=== PATIENT | female | born 1955 | race Caucasian/White ===

== ENCOUNTER 2020-05-18 20:38 | Inpatient (IN) | payer BC ==
[2020-05-18] MEDS ORDERED: NITROGLYCERIN 0.4 MG/TAB SL ONE (22:07)
[2020-05-18] MEDS ORDERED: NA CHLORIDE 0.9% 500 ML ONE (22:07)
[2020-05-18] MEDS ORDERED: ASPIRIN 81 MG CHEWABLE TABLET ONE (22:08)
[2020-05-18 22:24] LABS: Protime INR 1.03
[2020-05-18 22:25] LABS: Absolute Lymphocytes (CBC) 2.5 K/uL (0.7-4.9); Basophils % 0.9 % (0-1.3); Hematocrit 37.6 % (36.0-45.0); Lymphocytes % 23.7 % (15.3-44.8); MPV 7.1 fL (7.6-11.3); RBC Red Blood Cell Count 4.45 M/uL (3.86-4.86)
[2020-05-18 22:54] LABS: ALT/SGPT 26 U/L (12-78); AST/SGOT 14 U/L (15-37); Albumin 3.3 g/dL (3.4-5.0); Alkaline Phosphatase 81 U/L (45-117); BUN Blood Urea Nitrogen 16 mg/dL (7-18); Bicarbonate 26 mmol/L (21-32); Bilirubin Direct < 0.1 mg/dL (0-0.2); Bilirubin Total 0.2 mg/dL (0.2-1.0); Glucose Level 113 mg/dL (74-106); Magnesium 2.5 mg/dL (1.8-2.4); NT PRO-BNP 408 pg/mL (<125); Potassium 3.9 mmol/L (3.5-5.1); Protein, Total 7.5 g/dL (6.4-8.2); Sodium Level 142 mmol/L (136-145)
[2020-05-18 22:55] LABS: Troponin (Emerg Dept Use Only) 0.68 ng/mL (0.0-0.045)
[2020-05-18] MEDS ORDERED: MORPHINE 2 MG/ML SYR ONE (22:56)
[2020-05-18] MEDS ORDERED: ENOXAPARIN 80 MG/0.8 ML SQ ONE (23:18)
[2020-05-18] MEDS ORDERED: ENOXAPARIN 40 MG/0.4 ML SQ ONE (23:18)
--- NOTE | 2020-05-18 23:19 | EDPHYS ---
Physician Documentation [facility] Name: Sade Ochoa Age: 64 yrs Sex: Female : 1955 Arrival Date: 05/18/2020 Time: 20:43 Bed 15 Private MD: ED Physician Abdiel Ryan HPI: 05/18 21:20 This 64 yrs old Female presents to ER via Ambulatory with complaints of Blood Pressure cp Problem, Headache. 21:20 The patient complains of pain to the middle of head. cp 21:20 Onset: The symptoms/episode began/occurred yesterday. The patient or guardian reports cp chest pain that is located primarily in the substernal area. Onset: 1 hour(s) ago. The pain does not radiate. Associated signs and symptoms: Pertinent negatives: altered mental status, dizziness, fever, neck stiffness, vision changes, vomiting, weakness. The chest pain is described as aching. Duration: The patient or guardian reports a single episode, that is still ongoing, but improving. Historical: - Allergies: 20:56 No Known Allergies; lp1 - Home Meds: 20:56 metoprolol succinate 50 mg oral Tb24 1 tab once daily [Active]; atorvastatin 10 mg oral lp1 tab 1 tab once daily [Active]; Plavix 75 mg Oral tab 1 tab once daily [Active]; - PMHx: 20:56 Hypertension; lp1 - PSHx: 20:56 Heart stents; lp1 - Immunization history:: Adult Immunizations up to date. - Social history:: Smoking status: Reported history of juuling and/or vaping. ROS: 21:25 Constitutional: Negative for body aches, chills, fever, poor PO intake. cp 21:25 Neck: Negative for pain with movement, pain at rest, stiffness. cp 21:25 Cardiovascular: Positive for chest pain, Negative for edema, palpitations. 21:25 Respiratory: Negative for cough, shortness of breath, wheezing. 21:25 Abdomen/GI: Negative for abdominal pain, nausea, vomiting, diarrhea, constipation. 21:25 Back: Negative for radiated pain. 21:25 Neuro: Positive for headache, Negative for altered mental status, loss of consciousness, syncope, weakness. 21:25 All other systems are negative. Exam: 21:30 Constitutional: The patient appears in no acute distress, alert, awake, cp non-diaphoretic, non-toxic, well developed, well nourished. 21:30 Head/Face: Normocephalic, atraumatic. cp 21:30 Eyes: Periorbital structures: appear normal, Conjunctiva: normal, no exudate, no injection, Sclera: no appreciated abnormality, Lids and lashes: appear normal, bilaterally. 21:30 ENT: External ear(s): are unremarkable, Nose: is normal, Posterior pharynx: Airway: no evidence of obstruction, patent. 21:30 Neck: ROM/movement: is normal, is supple, without pain, no range of motions limitations. 21:30 Chest/axilla: Inspection: normal, Palpation: is normal, no crepitus, no tenderness. 21:30 Cardiovascular: Rate: normal, Rhythm: regular, Pulses: Pulses are 2+ in right radial artery and left radial artery. Heart sounds: murmur, not appreciated, Edema: is not appreciated, JVD: is not appreciated. 21:30 Respiratory: the patient does not display signs of respiratory distress, Respirations: normal, Breath sounds: are clear throughout, no decreased breath sounds, no stridor, no wheezing. 21:30 Abdomen/GI: Inspection: abdomen appears normal, Bowel sounds: active, all quadrants, cp Palpation: abdomen is soft and non-tender, in all quadrants. 21:30 Back: pain, is absent, ROM is normal. cp 21:30 Neuro: Orientation: to person, place \T\ time. Mentation: is normal, Cerebellar function: is grossly normal, Motor: moves all fours, strength is normal, Sensation: is normal. 21:33 ECG was reviewed by the Attending Physician. cp Vital Signs: 20:56 BP 148 / 96 RA; Pulse 87; Resp 18; Temp 97.9(TE); Pulse Ox 97% on R/A; Weight 117.93 lp1 kg; Height 5 ft. 7 in. (170.18 cm); Pain 0/10; 21:01 BP 145 / 101 LA; lp1 22:00 BP 115 / 94; Pulse 88; Resp 22; Pulse Ox 94% on R/A; vc 23:55 BP 146 / 88; Pulse 73; Resp 16; Pulse Ox 100% on R/A; vc 20:56 Body Mass Index 40.72 (117.93 kg, 170.18 cm) lp1 MDM: 21:21 Patient medically screened. cp 22:10 Differential diagnosis: abnormal EKG, acute myocardial infarction, hypertensive cp headache, migraine, sinusitis, subarachnoid bleed, tension headache. 23:15 The patient was given aspirin in the Emergency Department. cp 23:15 Data reviewed: vital signs, nurses notes, lab test result(s), EKG, radiologic studies, cp plain films, I have discussed the patient's presentation/case with the attending Emergency Department Physician;. Test interpretation: by ED physician or midlevel provider: ECG, chest xray negative for infiltrates. Response to treatment: the patient's symptoms have markedly improved after treatment, chest pain markedly improved. 23:17 Physician consultation: Ld Alvarado MD was contacted at 23:17, regarding consult, cp patient's condition, and will see patient in inpatient room, tomorrow morning. 05/18 21:21 Order name: Basic Metabolic Panel; Complete Time: 22:56 cp 05/18 22:56 Interpretation: Normal except: GLUC 113; GFR 63. cp 05/18 21:21 Order name: CBC with Diff; Complete Time: 22:43 cp 05/18 23:12 Interpretation: Normal except: MPV 7.1. cp 05/18 21:21 Order name: LFT's; Complete Time: 22:56 cp 05/18 23:12 Interpretation: Normal except: AST 14; ALB 3.3; GLOB 4.2; A/G 0.8. cp 05/18 21:21 Order name: Magnesium; Complete Time: 22:56 cp 05/18 21:21 Order name: NT PRO-BNP; Complete Time: 22:56 cp 05/18 21:21 Order name: PT-INR; Complete Time: 22:43 cp 05/18 21:21 Order name: Troponin (emerg Dept Use Only); Complete Time: 22:56 cp 05/18 22:56 Interpretation: Abnormal: TROPED 0.68. cp 05/18 21:21 Order name: XRAY Chest (1 view) cp 05/18 21:39 Order name: CT Head Brain wo Cont cp 05/18 22:23 Order name: Chest Single View EDWA 05/18 22:26 Order name: Head Brain Wo Cont EDMS 05/18 21:21 Order name: EKG; Complete Time: 22:02 cp 05/18 21:21 Order name: Cardiac monitoring; Complete Time: 21:42 cp 05/18 21:21 Order name: EKG - Nurse/Tech; Complete Time: 21:42 cp 05/18 21:21 Order name: IV Saline Lock; Complete Time: 22:13 cp 05/18 21:21 Order name: Labs collected and sent; Complete Time: 22:13 cp 05/18 21:21 Order name: O2 Per Protocol; Complete Time: 22:13 cp 05/18 21:21 Order name: O2 Sat Monitoring; Complete Time: 22:14 cp EC:33 Rate is 78 beats/min. Rhythm is regular. DC interval is normal. QRS interval is normal. cp QT interval is normal. T waves are Inverted in lead aVL. Interpreted by me. Reviewed by me. Administered Medications: 22:01 Drug: Nitroglycerin 0.4 mg Route: Sublingual; vc 22:02 Drug: Aspirin Chewable Tablet 324 mg Route: PO; vc 22:26 Drug: NS 0.9% 500 ml Route: IV; Rate: bolus; Site: left antecubital; vc 22:52 Drug: morphine 2 mg Route: IVP; Site: left antecubital; vc 23:12 Drug: Lovenox 1 mg/kg {Note: ADMINISTERED 120 MG.} Route: Sub-Q; Site: right lower vc abdomen; Disposition: 23:30 Chart complete. 05/19 06:07 Co-signature as Attending Physician, Abdiel Ryan MD I agree with the assessment and tw4 plan of care. Disposition: 05/18/20 23:19 Hospitalization ordered by Ulises Malhotra for Inpatient Admission. Preliminary diagnosis are Non-ST elevation (NSTEMI) myocardial infarction, Hypertensive heart disease. - Bed requested for Telemetry/MedSurg (Inpatient). - Status is Inpatient Admission. vc - Condition is Stable. - Problem is new. - Symptoms have improved. Signatures: Dispatcher [employer] EDMS Chelsey Myrick, RN RN lp1 Rafael Nava PA PA cp Garcia, Cindy, RN RN cg Wadley, Terrence, MD MD tw4 Lucila Green RN RN vc Corrections: (The following items were deleted from the chart) 05/18 23:19 23:19 Hospitalization Ordered by Ulises Malhotra DO for Inpatient Admission. Preliminary cp diagnosis is Non-ST elevation (NSTEMI) myocardial infarction. Bed requested for Telemetry/MedSurg (Inpatient). Status is Inpatient Admission. Condition is Stable. Problem is new. Symptoms have improved. cp 23:52 23:19 05/18/2020 23:19 Hospitalization Ordered by Ulises Malhotra DO for Inpatient cg Admission. Preliminary diagnosis is Non-ST elevation (NSTEMI) myocardial infarction; Hypertensive heart disease. Bed requested for Telemetry/MedSurg (Inpatient). Status is Inpatient Admission. Condition is Stable. Problem is new. Symptoms have improved. cp 23:54 21:30 Cardiovascular: Rate: normal, Rhythm: regular, Heart sounds: murmur, not cp appreciated, Edema: is not appreciated, JVD: is not appreciated, cp 05/19 00:46 09 23:52 05/18/2020 23:19 Hospitalization Ordered by Ulises Malhotra DO for Inpatient vc Admission. Preliminary diagnosis is Non-ST elevation (NSTEMI) myocardial infarction; Hypertensive heart disease. Bed requested for Telemetry/MedSurg (Inpatient). Status is Inpatient Admission. Condition is Stable. Problem is new. Symptoms have improved. cg
--- NOTE | 2020-05-18 23:19 | ER ---
Nurse's Notes [facility] Name: Sade Ochoa Age: 64 yrs Sex: Female : 1955 Arrival Date: 05/18/2020 Time: 20:43 Bed 15 Private MD: Diagnosis: Non-ST elevation (NSTEMI) myocardial infarction;Hypertensive heart disease Presentation: 05/18 20:53 Chief complaint: Patient states: Headache began yesterday, checked blood pressure and lp1 was high at home 197/101; Began to have some chest pain tonight. Ebola Screen: No symptoms or risks identified at this time. Risk Assessment: Do you want to hurt yourself or someone else? Patient reports no desire to harm self or others. Onset of symptoms was May 17, 2020. 20:53 Method Of Arrival: Ambulatory lp1 20:53 Acuity: CALLIE 3 lp1 20:56 Coronavirus screen: Client denies travel out of the [place] in the last 14 days. At this lp1 time, the client does not indicate any symptoms associated with coronavirus-19. Initial Sepsis Screen: Does the patient meet any 2 criteria? No. Patient's initial sepsis screen is negative. Does the patient have a suspected source of infection? No. Patient's initial sepsis screen is negative. Triage Assessment: 21:05 Headache History: The patient has had previous headaches and this one is different than vc previous episodes, and this one is more severe than previous episodes. General: Appears in no apparent distress. Behavior is cooperative, appropriate for age, anxious. Pain: Complains of pain in head Pain does not radiate. Pain currently is 4 out of 10 on a pain scale. at worst was 8 out of 10 on a pain scale. Quality of pain is described as pressure, throbbing, Pain began suddenly, Is intermittent, Also complains of no other associated symptoms. Neuro: Level of Consciousness is awake, alert, obeys commands, Oriented to person, place, time, situation, Appropriate for age. Cardiovascular: Capillary refill < 3 seconds Patient's skin is warm and dry. Cardiovascular: Chest pain is denied PATIENT STATED SHE HAD CHEST PAIN RATED 5/10 PRIOR TO ARRIVAL, CHEST PAIN SUBSIDED UPON ARRIVAL TO ER.. Respiratory: Airway is patent Respiratory effort is even, unlabored, Respiratory pattern is regular, symmetrical. GI: No signs and/or symptoms were reported involving the gastrointestinal system. : No signs and/or symptoms were reported regarding the genitourinary system. Derm: Skin is intact, is healthy with good turgor. Musculoskeletal: Circulation, motion, and sensation intact. Range of motion: intact in all extremities. Historical: - Allergies: 20:56 No Known Allergies; lp1 - Home Meds: 20:56 metoprolol succinate 50 mg oral Tb24 1 tab once daily [Active]; atorvastatin 10 mg oral lp1 tab 1 tab once daily [Active]; Plavix 75 mg Oral tab 1 tab once daily [Active]; - PMHx: 20:56 Hypertension; lp1 - PSHx: 20:56 Heart stents; lp1 - Immunization history:: Adult Immunizations up to date. - Social history:: Smoking status: Reported history of juuling and/or vaping. Screenin:56 Abuse screen: Denies threats or abuse. Denies injuries from another. Nutritional lp1 screening: No deficits noted. Tuberculosis screening: No symptoms or risk factors identified. 21:05 Fall Risk None identified. vc Assessment: 21:05 Reassessment: SEE TRIAGE FOR ASSESSMENT. vc 22:00 Reassessment: Patient and/or family updated on plan of care and expected duration. Pain vc level reassessed. Patient is alert, oriented x 3, equal unlabored respirations, skin warm/dry/pink. 23:00 Reassessment: Patient and/or family updated on plan of care and expected duration. Pain vc level reassessed. Patient is alert, oriented x 3, equal unlabored respirations, skin warm/dry/pink. Patient states symptoms have improved. 05/19 00:00 Reassessment: Patient and/or family updated on plan of care and expected duration. Pain vc level reassessed. Patient is alert, oriented x 3, equal unlabored respirations, skin warm/dry/pink. Patient states feeling better. Patient states symptoms have improved. Vital Signs: 05/18 20:56 BP 148 / 96 RA; Pulse 87; Resp 18; Temp 97.9(TE); Pulse Ox 97% on R/A; Weight 117.93 lp1 kg; Height 5 ft. 7 in. (170.18 cm); Pain 0/10; 21:01 BP 145 / 101 LA; lp1 22:00 BP 115 / 94; Pulse 88; Resp 22; Pulse Ox 94% on R/A; vc 23:55 BP 146 / 88; Pulse 73; Resp 16; Pulse Ox 100% on R/A; vc 20:56 Body Mass Index 40.72 (117.93 kg, 170.18 cm) lp1 ED Course: 20:43 Patient arrived in ED. am2 20:55 Triage completed. lp1 20:55 Arm band placed on left wrist. lp1 21:03 Lucila Green, RN is Primary Nurse. vc 21:05 Patient has correct armband on for positive identification. Bed in low position. Call vc light in reach. Side rails up X2. awake overnight monitor on. Pulse ox on. NIBP on. 21:10 Rafael Nava PA is PHCP. cp 21:10 Abdiel Ryan MD is Attending Physician. cp 22:25 Chest Single View In Process Unspecified. EDMS 22:26 Head Brain Wo Cont In Process Unspecified. EDMS 23:03 Notified Nurse Practitioner and/or Physician Repossessor of a critical lab result(s), bb troponin of 0.68 notified Rafael GREGORY. 23:18 Ulises Malhotra DO is Hospitalizing Provider. cp 05/19 00:45 No provider procedures requiring assistance completed. Patient admitted, IV remains in vc place. Administered Medications: 05/18 22:01 Drug: Nitroglycerin 0.4 mg Route: Sublingual; vc 22:02 Drug: Aspirin Chewable Tablet 324 mg Route: PO; vc 22:26 Drug: NS 0.9% 500 ml Route: IV; Rate: bolus; Site: left antecubital; vc 22:52 Drug: morphine 2 mg Route: IVP; Site: left antecubital; vc 23:12 Drug: Lovenox 1 mg/kg {Note: ADMINISTERED 120 MG.} Route: Sub-Q; Site: right lower vc abdomen; Outcome: 23:19 Decision to Hospitalize by Provider. cp 05/19 00:45 Admitted to Med/surg accompanied by tech, via wheelchair, room 207, Report called to ANIYAH Moreno Condition: good 00:46 Patient left the ED. vc Signatures: Dispatcher [employer] EDMS Micaela Garcia RN RN bb Chelsey Myrick RN RN lp1 Rafael Nava PA PA cp Moreno, Amanda am2 Lucila Green, RN RN vc Corrections: (The following items were deleted from the chart) 05/18 21:01 20:56 BP 148 / 96; Pulse 87bpm; Resp 18bpm; Pulse Ox 97% RA; Temp 97.9F Temporal; lp1 117.93 kg; Height 5 ft. 7 in.; BMI: 40.7; Pain 0/10; lp1 05/19 02:12 01:05 Reassessment: SEE TRIAGE FOR ASSESSMENT vc vc
--- NOTE | 2020-05-18 23:53 | P.HP ---
Certification for Inpatient Patient admitted to: Inpatient With expected LOS: >2 Midnights Patient will require the following post-hospital care: None Practitioner: I am a practitioner with admitting privileges, knowledge of patient current condition, hospital course, and medical plan of care. Services: Services provided to patient in accordance with Admission requirements found in Title 42 Section 412.3 of the Code of Federal Regulations Patient History Date of Service: 05/18/20 Reason for admission: NSTEMI History of Present Illness: 64-year-old female with history of hypertension, hyperlipidemia, tobacco abuse presents emergency department for chief complaint of chest pain. Patient reports that today she began having a headache around noon and she checked her blood pressure which was significantly elevated. Patient attempted to present to urgent Care for evaluation by all then were closed. Patient then returned home. After returning home at approximately 1900 today patient began experiencing a sharp substernal chest pain nonradiating rated at approximately an 8/10. Patient then reported to the emergency department. Patient was evaluated in the emergency department and found to have a an elevated troponin at 0.6. EKG findings not suggestive of ST-elevation myocardial infarction. Cardiology was consulted while the patient was in the emergency department and would like to have the patient placed on Lovenox and admitted for further evaluation and management. When I saw the patient in the emergency department she was awake, alert, oriented x4. Patient reports she still having some mild substernal chest pain rated as a 2/10 in comparison to at its worst and 8/10. Patient did receive 1 0.4 mg sublingual nitro in emergency department - Past Medical/Surgical History Diabetic: No -: Hypertension -: Hyperlipidemia -: Hysterectomy -: Left shoulder surgery -: Stent in leg Psychosocial/ Personal History: Patient works from home and lives with the family. - Family History Father -: Heart disease ( at the age of 41 from myocardial infarction) - Social History Smoking Status: Current every day smoker Alcohol use: No CD- Drugs: No Caffeine use: Yes Place of Residence: Home Review of Systems 10-point ROS is otherwise unremarkable Cardiovascular: Chest Pain Neurological: Other (Headache) Physical Examination - Physical Exam General: Alert, In no apparent distress HEENT: Atraumatic, PERRLA, Mucous membr. moist/pink Neck: Supple, 2+ carotid pulse no bruit Respiratory: Clear to auscultation bilaterally, Normal air movement Cardiovascular: Regular rate/rhythm, Normal S1 S2 Gastrointestinal: Normal bowel sounds, No tenderness Musculoskeletal: No tenderness Integumentary: No rashes Neurological: Normal gait, Normal speech, Normal strength at 5/5 x4 extr, Normal tone, Normal affect - Studies Laboratory Data (last 24 hrs) 05/18/20 22:00: PT 12.1, INR 1.03 05/18/20 22:00: WBC 10.5, Hgb 12.7, Hct 37.6, Plt Count 339 05/18/20 22:00: Sodium 142, Potassium 3.9, BUN 16, Creatinine 0.91, Glucose 113 H, Magnesium 2.5 H, Total Bilirubin 0.2, AST 14 L, ALT 26, Alkaline Phosphatase 81 Assessment and Plan - Plan Assessment NSTEMI Hypertension Hyperlipidemia Plan NSTEMI: Cardiology consulted while patient was in the emergency department. Continue with Lovenox 1 milligram/kilogram q.12 hr, metoprolol, aspirin, atorvastatin, p.r.n. nitroglycerin and morphine. Will trend troponins, patient remain on telemetry throughout this hospitalization. Anticipate heart catheterization likely on Thursday. Patient be evaluated by cardiology tomorrow. Hypertension: Continue patient's metoprolol, parameters in place. Hyperlipidemia: Increased patient's atorvastatin from 10 mg to 40 mg. Will obtain lipid panel with morning labs. Discharge Plan: Home Plan to discharge in: Greater than 2 days - Advance Directives Does patient have a Living Will: No Does patient have a Durable POA for Healthcare: No - Code Status/Comfort Care Code Status Assessed: Yes (Patient is full code) Critical Care: No Time Spent Managing Pts Care (In Minutes): 55
[2020-05-19 00:53] VITALS: BMI 40.8
[2020-05-19] MEDS ORDERED: MORPHINE 2 MG/ML SYR IV PRN (01:09)
[2020-05-19] MEDS ORDERED: ONDANSETRON 4 MG/2 ML VIAL IV PRN (01:09)
[2020-05-19] MEDS ORDERED: NITROGLYCERIN 0.4 MG/TAB SL PRN (01:09)
[2020-05-19 04:55] LABS: Absolute Lymphocytes (CBC) 3.5 K/uL (0.7-4.9); Basophils % 0.9 % (0-1.3); Lymphocytes % 40.5 % (15.3-44.8); MPV 7.3 fL (7.6-11.3); RBC Red Blood Cell Count 4.25 M/uL (3.86-4.86)
[2020-05-19 05:07] LABS: Potassium 3.7 mmol/L (3.5-5.1); Thyroid Stimulating Hormone 2.88 uIU/mL (0.360-3.740)
[2020-05-19] MEDS ORDERED: POTASSIUM CL SA 10 MEQ TAB PO ONE (05:21)
[2020-05-19] MEDS ORDERED: METOPROLOL XL 50 MG TAB PO SCH (06:00)
--- NOTE | 2020-05-19 09:00 | EKG ---
Test Date: 2020-05-18 Test Time: 21:24:18 Nurse Intern: GE MEASUREMENT RESULTS: Intervals: Rate: 78 MI: 166 QRSD: 76 QT: 398 QTc: 453 [place]: P: 60 MI: 166 QRS: 79 T: 77 INTERPRETIVE STATEMENTS: Sinus rhythm with occasional premature ventricular complexes Otherwise normal ECG No previous ECG available for comparison Electronically Signed On 05-19-20 08:59:53 CDT by Ld Alvarado
[2020-05-19] MEDS: ASPIRIN EC 81 MG TAB PO SCH (09:02)
[2020-05-19] MEDS: Enoxaparin 120 MG/0.8 ML SYR SQ SCH ×2 (09:06→20:01)
--- NOTE | 2020-05-19 09:17 | RAD REPORT ---
EXAM DESCRIPTION: RAD - Chest Single View - 05/18/2020 9:46 pm CLINICAL HISTORY: COUGH Chest pain. COMPARISON: No comparisons FINDINGS: Portable technique limits examination quality. The lungs are grossly clear. The heart is normal in size. No displaced fractures. IMPRESSION: No acute intrathoracic process suspected.
--- NOTE | 2020-05-19 10:38 | P.PN ---
Subjective Date of Service: 05/19/20 Chief Complaint: NSTEMI Subjective: No new changes (-resolved chest pain now - no more headaches - tolerating po well) Physical Examination - Vital Signs Temperature: 97.4 F Blood Pressure: 138/63 Pulse: 68 Respirations: 20 Pulse Ox (%): 96 - Physical Exam General: Alert, In no apparent distress, Oriented x3 HEENT: Atraumatic, Normocephalic, PERRLA Neck: Supple, 2+ carotid pulse no bruit Respiratory: Clear to auscultation bilaterally, Normal air movement Cardiovascular: Normal pulses, Regular rate/rhythm, Normal S1 S2 Gastrointestinal: Normal bowel sounds, Soft and benign, Non-distended Musculoskeletal: No clubbing, No swelling Integumentary: No rashes, No breakdown Neurological: Normal gait, Normal speech, Normal strength at 5/5 x4 extr External genitalia: No edema, No lesions - Studies Laboratory Data (last 24 hrs) 05/18/20 22:00: PT 12.1, INR 1.03 05/18/20 22:00: WBC 10.5, Hgb 12.7, Hct 37.6, Plt Count 339 05/18/20 22:00: Sodium 142, Potassium 3.9, BUN 16, Creatinine 0.91, Glucose 113 H, Magnesium 2.5 H, Total Bilirubin 0.2, AST 14 L, ALT 26, Alkaline Phosphatase 81 Assessment & Plan - Problems (Diagnosis) (1) Non-ST elevation (NSTEMI) myocardial infarction Current Visit: Yes Status: Acute (2) HTN (hypertension) Current Visit: Yes Status: Acute (3) HLD (hyperlipidemia) Current Visit: Yes Status: Acute Physician Review: Patient Assessed, Agree with Above Assessment and Plan Physician Review Additional Text: Impression NSTEMI Hypertension Hyperlipidemia Plan NSTEMI: chest pain free now -still trending cardiac enzymes -c/w lovenox/Toprol/Aspirin/Atorvastatin/Morphine -c/w tele monitoring -Cardiology -Dr Alvarado discussed - possible cath this weekend if available staffing Hypertension: controlled , c/w Toprol Hyperlipidemia: controlled panel , c/w Lipitor Discharge Plan: Home post cath Time Spent Managing Pts Care (In Minutes): 30
--- NOTE | 2020-05-19 14:45 | RAD REPORT ---
EXAM DESCRIPTION: Head Brain Wo Cont CLINICAL HISTORY: HEADACHE COMPARISON: None. TECHNIQUE: CT HEAD WITHOUT IV CONTRAST on 05/18/2020 12:00 AM CDT This exam was performed according to our departmental dose-optimization program, which includes autom ated exposure control, adjustment of the mA and/or kV according to patient size and/or use of iterati ve reconstruction technique. FINDINGS: There is no acute hemorrhage, mass effect or midline shift. Eng-white differentiation is preserved. There is no hydrocephalus. There is no significant volume loss for age. The calvarium is intact. Orbits and globes are unremarkable. There is complete opacification of the l eft sphenoid sinus and right maxillary sinus. Right ethmoid air cells are partially opacified. Left m axillary sinus is thickened. Mastoid air cells are clear. IMPRESSION: No acute intracranial findings. Electronically signed by: Jeffery Austin MD 05/18/2020 10:18 PM CDT Due to temporary technical issues with the PACS/Fluency reporting system, reports are being signed by the in house radiologist without review as a courtesy to ensure prompt reporting. The interpreting r adiologist is fully responsible for the content of the report.
[2020-05-19] MEDS: ATORVASTATIN 40 MG TAB PO SCH (20:01)
[2020-05-20 06:07] LABS: Absolute Lymphocytes (CBC) 2.4 K/uL (0.7-4.9); Basophils % 1.1 % (0-1.3); Hematocrit 37.2 % (36.0-45.0); RBC Red Blood Cell Count 4.38 M/uL (3.86-4.86)
[2020-05-20 06:16] LABS: Potassium 4.2 mmol/L (3.5-5.1)
[2020-05-20] MEDS: METOPROLOL XL 25 MG TAB PO SCH (08:27)
[2020-05-20] MEDS: ASPIRIN EC 81 MG TAB PO SCH (08:27)
[2020-05-20] MEDS: Enoxaparin 120 MG/0.8 ML SYR SQ SCH (08:28)
[2020-05-20] MEDS: ACETAMINOPHEN 500 MG TAB PO PRN (08:28)
--- NOTE | 2020-05-20 09:12 | P.PN ---
Subjective Date of Service: 05/20/20 Chief Complaint: NSTEMI Subjective: No new changes, No C/O voiced Physical Examination - Vital Signs Temperature: 96.1 F Blood Pressure: 143/68 Pulse: 74 Respirations: 17 Pulse Ox (%): 96 - Physical Exam General: Alert, In no apparent distress, Oriented x3 HEENT: Atraumatic, Normocephalic, PERRLA Neck: 2+ carotid pulse no bruit, JVD not distended Respiratory: Clear to auscultation bilaterally, Normal air movement Cardiovascular: Normal pulses, Regular rate/rhythm, Normal S1 S2 Gastrointestinal: Normal bowel sounds, Soft and benign, Non-distended Musculoskeletal: No clubbing, No swelling Integumentary: No rashes, No breakdown Neurological: Normal speech, Normal strength at 5/5 x4 extr, Normal tone Assessment & Plan - Problems (Diagnosis) (1) Non-ST elevation (NSTEMI) myocardial infarction Current Visit: Yes Status: Acute (2) HTN (hypertension) Current Visit: Yes Status: Acute (3) HLD (hyperlipidemia) Current Visit: Yes Status: Acute Physician Review: Patient Assessed, Agree with Above Assessment and Plan Physician Review Additional Text: Impression NSTEMI Hypertension Hyperlipidemia Plan NSTEMI: continue to be chest pain free now - follow plan for cardiac cath in am -c/w lovenox/Toprol/Aspirin/Atorvastatin/Morphine -c/w tele monitoring -Cardiology -Dr Alvarado discussed Hypertension: controlled , c/w Toprol Hyperlipidemia: controlled panel , c/w Lipitor Discharge Plan: Home post cath
--- NOTE | 2020-05-20 11:33 | CON ---
Date of Consultation: 05/19/2020 Admitted on 05/18/2020 for a non-STEMI. I saw the patient on 05/19/2020. History Of Present Illness: Ms. Ochoa is a 64-year-old woman who has had a history of PAD before. She is status post left SFA stent in [place], [place]. 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 She also has a history of hypertension and dyslipidemia. She came in with initia lly severe headaches on the right side, then began having chest pressure with left arm radiation with some diaphoresis, but no nausea or vomiting. Denied PND, orthopnea, pedal edema, palpitation, or sy ncope. Denies fever or chills or cough. Her troponin was positive consistent with non-ST elevation myocardial infarction and she was admitted for further evaluation and treatment. Her blood pressure upon arrival was 201/111. Past Medical History: As stated above. Allergies: NONE. Review of Systems: Negative. Social History: Positive for tobacco, but she quit. Family History: Unremarkable. Medications: At home are listed by admitting physician. Physical Examination: General: Very pleasant, no acute distress. Vital Signs: Stable. She was afebrile. HEENT: Negative. Neck: Supple. No bruit. Chest: Clear. Cardiac: Revealed a regular rhythm and rate with S4 gallops. No murmurs or rubs. Abdomen: Benign. Extremities: Revealed no clubbing, cyanosis, or edema. Diagnostic Data: Normal except for elevated troponin. EKG showed nonspecific changes. Chest x-ray is negative. Impression And Plan: Elevated troponin, certainly could be secondary to hypertensive crisis versus c oronary artery disease, but the patient has multiple cardiac risk factors. She has hypertension, dys lipidemia, used to smoke. She has peripheral arterial disease, status post stents in the past. Ms. Ochoa needs a left heart catheterization to document whether she has any coronary artery disease or not. The case was discussed with her in detail. She understands the risks and the benefits of the procedure and she agreed to proceed. I would feel much safer if the patient remains in the hospital till Thursday where we can perform the heart catheterization. For now, she is on Lovenox, aspirin, bet a-blockers and she should be on a statin as well. We will continue to follow her. Her blood pressur e is much better controlled now. NB/MASON Voice ID: [id number] Report ID: [id number]
--- NOTE | 2020-05-20 11:51 | PN ---
Sade Ochoa is a patient, who came in yesterday with acute coronary syndrome, non-ST elevation myoc ardial infarction. She is on appropriate therapy with metoprolol aspirin, statin, and Lovenox. She has not had any further chest pain overnight. She has a history of hypertension, dyslipidemia, and p eripheral arterial disease, status post left SFA stent in the past. The plan is to do a left heart c atheterization on her tomorrow to define her coronary anatomy. We will hold Lovenox up to tonight. No change in medical therapy. Final decisions will be made after the catheterization. HOANG/MASON Voice ID: [id number] Report ID: [id number]
[2020-05-20] MEDS: ATORVASTATIN 40 MG TAB PO SCH (20:59)
[2020-05-21 05:40] LABS: Basophils % 0.9 % (0-1.3); Hematocrit 37.3 % (36.0-45.0); Lymphocytes % 29.3 % (15.3-44.8); MPV 6.9 fL (7.6-11.3); RBC Red Blood Cell Count 4.39 M/uL (3.86-4.86)
[2020-05-21 05:47] LABS: Potassium 4.1 mmol/L (3.5-5.1)
[2020-05-21] MEDS ORDERED: NA CHLORIDE 0.9% 1,000 ML ONE (08:35)
[2020-05-21] MEDS: METOPROLOL XL 25 MG TAB PO SCH (08:52)
[2020-05-21] MEDS: ASPIRIN EC 81 MG TAB PO SCH (08:52)
[2020-05-21] MEDS ORDERED: HEPA 1000U/500MLS 1,000 UNIT/500 ML BAG IV ONE (09:06)
[2020-05-21] MEDS ORDERED: MIDAZOLAM HCL 2 MG/2 ML INJ ONE ×3 (09:06→10:29)
[2020-05-21] MEDS ORDERED: LIDOCAINE 1% MPF 30 ML VIAL ONE (09:07)
[2020-05-21] MEDS ORDERED: NA CHLORIDE 0.9% 50 ML ONE (09:07)
[2020-05-21] MEDS ORDERED: FENTANYL CITR 100 MCG/2 ML ONE ×2 (09:07→10:29)
[2020-05-21] MEDS ORDERED: ATROPINE SULF 1 MG/10 ML SYR IV ONE (09:07)
[2020-05-21] MEDS ORDERED: NITROGLYCERIN/D5W 25 MG/250 ML BTL IV ONE (10:36)
[2020-05-21] MEDS ORDERED: NITROGLYCERIN 100 MCG/ML SYR (for cath lab use only) IV ONE (10:36)
[2020-05-21] MEDS ORDERED: PRASUGREL (EFFIENT) 10 MG TAB ONE (10:49)
--- NOTE | 2020-05-21 15:18 | P.PN ---
Subjective Date of Service: 05/21/20 Patient still having chest discomfort. Scheduled for cardiac catheterization today. Possible intervention here today. Review of Systems 10-point ROS is otherwise unremarkable Physical Examination - Vital Signs Temperature: 97.1 F Blood Pressure: 150/68 Pulse: 69 Respirations: 16 Pulse Ox (%): 99 - Physical Exam General: Alert, In no apparent distress, Oriented x3 Respiratory: Clear to auscultation bilaterally, Normal air movement Cardiovascular: Regular rate/rhythm, Normal S1 S2, Systolic murmur Gastrointestinal: Normal bowel sounds, Soft and benign, Non-distended, No tenderness Musculoskeletal: No clubbing, No swelling, No tenderness Integumentary: No rashes Neurological: Normal tone, Sensation intact, Cranial nerves 3-12 intact - Studies Medications List Reviewed: Yes Assessment & Plan - Problems (Diagnosis) (1) HLD (hyperlipidemia) Current Visit: Yes Status: Acute (2) HTN (hypertension) Current Visit: Yes Status: Acute (3) Non-ST elevation (NSTEMI) myocardial infarction Current Visit: Yes Status: Acute - Plan 1. Patient scheduled for cardiac catheterization today 2. Appreciate Cardiology consultation 3. Echocardiogram pending 4. Anti-platelet therapy, anti coagulation, beta-durga, statin, and O2 as needed 5. IV morphine for pain 6. Nitro p.r.n. 7. GI and DVT prophylaxis Discharge Plan: Home Plan to discharge in: Greater than 2 days - Advance Directives Does patient have a Living Will: No Does patient have a Durable POA for Healthcare: No - Code Status/Comfort Care Code Status Assessed: Yes Code Status: Full Code Physician Review: Patient Assessed, Agree with Above Assessment and Plan Critical Care: No Time Spent Managing PTS Care (In Minutes): 35
[2020-05-21] MEDS: ACETAMINOPHEN 500 MG TAB PO PRN (16:21)
--- NOTE | 2020-05-21 19:10 | OP ---
Date of Procedure: 05/21/2020 Surgeon: Ld Alvarado MD Communication Manager: Reynaldo Aragon. Procedures: Left heart catheterization, selective coronary arteriogram, angioplasty, and stent of th e right coronary artery. Indication: Non-ST elevation myocardial infarction and coronary artery disease. Was admitted with c hest pain, headache, hypertension, was found to have non-ST elevation myocardial infarction. She has a history of PAD status post SFA stent, left common iliac stent, has a history of dyslipidemia. Her previous interventions were done in [place]. Description Of Procedure: Today on 05/21/2020, she was brought down to the clinical laboratory technologist as an inpatient. She was prepped and draped in the routine sterile fashion. She was given Versed and fentanyl for I V sedation. Her creatinine was 0.92. Her hemoglobin was normal. 10 cc of Xylocaine were used to nu mb the right groin. Using the Seldinger technique, we introduced a 6-Azeri sheath in the common fem oral artery. Angiography there was normal. Angio-Seal was used to close the case. A JL4 catheter w as used to cannulate the left main. The left main and LAD were normal. She had a 40% to 50% ostial circumflex lesion. The circumflex was nondominant. A JR4 catheter was used to select the right elvis nary artery. Had a 95% stenosis just past the RV branch long stenosis. We decided to intervene. A 3DRC guide catheter with side hole was introduced in the right coronary artery. A 0.014 Leeton wire was used to cross the lesion successfully. A 2.25 x 24 stent Synergy was introduced successfully and deployed successfully. After the deployment, there was an area that appeared to be suboptimal and d ilatation. A 2.25 x 15 Emerge noncompliant balloon was used at 18 atmospheres to dilate the stent. The result was 0% residual excellent results. The patient received Angiomax, intracoronary nitroglyc maribel, aspirin, and Effient during the procedure. There were no complications. Blood Loss: 5 mL. Anesthesia: Total conscious sedation was 45 minutes. Final Diagnosis: Coronary artery disease, status post successful angioplasty and stent of the mid RC A. [id number] ostial of the circumflex disease. Plan: To continue medical therapy with aspirin, statin, Toprol, and Plavix. She will go home in the morning. NB/MODL Voice ID: [id number] Report ID: [id number]
[2020-05-21] MEDS ORDERED: ATORVASTATIN 40 MG TAB PO SCH (21:00)
[2020-05-22 06:03] LABS: Absolute Lymphocytes (CBC) 1.9 K/uL (0.7-4.9); Basophils % 0.9 % (0-1.3); Hematocrit 38.5 % (36.0-45.0); Lymphocytes % 23.8 % (15.3-44.8); MPV 6.9 fL (7.6-11.3); RBC Red Blood Cell Count 4.55 M/uL (3.86-4.86)
[2020-05-22 06:17] LABS: Potassium 4.4 mmol/L (3.5-5.1)
[2020-05-22] MEDS: ASPIRIN EC 81 MG TAB PO SCH (08:14)
[2020-05-22] MEDS: METOPROLOL XL 25 MG TAB PO SCH (08:14)
[2020-05-22 08:15] VITALS: BP 161/74
[2020-05-22] MEDS: Enoxaparin 120 MG/0.8 ML SYR SQ SCH (08:15)
[2020-05-22 08:23] VITALS: O2SAT 96
--- NOTE | 2020-05-22 08:34 | P.DS ---
Discharge Date: 05/22/20 Disposition: ROUTINE DISCHARGE Discharge Condition: GOOD Reason for Admission: NSTEMI - Problems (1) HLD (hyperlipidemia) Status: Acute (2) HTN (hypertension) Status: Acute (3) Non-ST elevation (NSTEMI) myocardial infarction Status: Acute Brief History of Present Illness: 64-year-old female with history of hypertension, hyperlipidemia, tobacco abuse presents emergency department for chief complaint of chest pain. Patient reports that today she began having a headache around noon and she checked her blood pressure which was significantly elevated. Patient attempted to present to urgent Care for evaluation by all then were closed. Patient then returned home. After returning home at approximately 1900 today patient began experiencing a sharp substernal chest pain nonradiating rated at approximately an 8/10. Patient then reported to the emergency department. Patient was evaluated in the emergency department and found to have a an elevated troponin at 0.6. EKG findings not suggestive of ST-elevation myocardial infarction. Cardiology was consulted while the patient was in the emergency department and would like to have the patient placed on Lovenox and admitted for further evaluation and management. When I saw the patient in the emergency department she was awake, alert, oriented x4. Patient reports she still having some mild substernal chest pain rated as a 2/10 in comparison to at its worst and 8/10. Patient did receive 1 0.4 mg sublingual nitro in emergency department Hospital Course: Patient was taken to the cardiac catheterization lab and patient had a RCA stent placed. Patient did well in the post-operative period. Patient is clinically doing qwell and is stable for discharge. patient was informed of the importance of taking her medications a s prescribed. She will need to take Plavix to prevent restenosis of the stent until otherwise informed by Cardiology. At this time patient is doing well, and patient is stable for discharge home with outpt follow-up. Vital Signs/Physical Exam: Temp Pulse Resp BP Pulse Ox 97.4 F 78 16 161/74 H 97 05/22/20 04:00 05/22/20 08:14 05/22/20 04:00 05/22/20 08:14 05/22/20 04:00 General: Alert, In no apparent distress, Oriented x3 Laboratory Data at Discharge: WBC 8.0 K/uL (4.3-10.9) D 05/22/20 05:30 Hgb 13.0 g/dL (12.0-15.0) 05/22/20 05:30 Hct 38.5 % (36.0-45.0) 05/22/20 05:30 Plt Count 315 K/uL (152-406) 05/22/20 05:30 PT 12.1 SECONDS (9.5-12.5) 05/18/20 22:00 INR 1.03 05/18/20 22:00 Sodium 141 mmol/L (136-145) 05/22/20 05:30 Potassium 4.4 mmol/L (3.5-5.1) 05/22/20 05:30 BUN 13 mg/dL (7-18) 05/22/20 05:30 Creatinine 0.92 mg/dL (0.55-1.3) 05/22/20 05:30 Glucose 114 mg/dL (74-106) H 05/22/20 05:30 Magnesium 2.5 mg/dL (1.8-2.4) H 05/18/20 22:00 Total Bilirubin 0.2 mg/dL (0.2-1.0) 05/18/20 22:00 AST 14 U/L (15-37) L 05/18/20 22:00 ALT 26 U/L (12-78) 05/18/20 22:00 Alkaline Phosphatase 81 U/L (45-117) 05/18/20 22:00 Troponin I 0.99 ng/mL (0.0-0.045) H* 05/19/20 10:25 Triglycerides 119 mg/dL (<150) 05/22/20 05:30 Cholesterol 143 mg/dL (<200) 05/22/20 05:30 HDL Cholesterol 42 mg/dL (40-60) 05/22/20 05:30 Cholesterol/HDL Ratio 3.40 05/22/20 05:30 Home Medications: Clopidogrel Bisulfate [Plavix*] 75 mg PO DAILY 05/19/20 Metoprolol Succinate [Toprol Xl*] 25 mg PO DAILY 05/19/20 Aspirin [Aspirin EC 81 MG] 162 mg PO DAILY #60 tablet. 05/22/20 Atorvastatin Calcium [Lipitor] 80 mg PO BEDTIME #30 tab 05/22/20 Nitroglycerin [Nitrostat*] 0.4 mg SL UD PRN #100 tab 05/22/20 New Medications: Aspirin [Aspirin EC 81 MG] 162 mg PO DAILY #60 tablet. Atorvastatin Calcium [Lipitor] 80 mg PO BEDTIME #30 tab Nitroglycerin [Nitrostat*] 0.4 mg SL UD PRN #100 tab PRN Reason: Pain Scale 2-4 (Mild) Patient Discharge Instructions: OK TO DC IV AND DC HOME. FOLLOW-UP WITH PRIMARY CARE PROVIDER IN 1-2 WEEKS. FOLLOW-UP WITH CARDIOLOGY IN 1-2 WEEKS. RETURN TO THE ER IF SYMPTOMS WORSEN. CALL or TEXT DR. CHURCH AT [phone] IF ANY QUESTIONS REGARDING HOSPITAL STAY. PLEASE CALL THE FLOOR AT [phone] IF ANY MEDICATION OR NURSING QUESTIONS. 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
[2020-05-22 08:53] VITALS: TEMP 97.8
[2020-05-22] MEDS ORDERED: CLOPIDOGREL 75 MG TABLET PO SCH (09:00)
--- NOTE | 2020-05-22 18:55 | PN ---
Date of Progress Note: 05/22/2020 Subjective: Ms. Ochoa underwent a heart catheterization yesterday with an angioplasty and stent of her right coronary artery. This morning, subjectively she is feeling fine. She has no chest pain, shortness of breath. Denies any palpitation or syncope. Objective: Vital Signs: Stable. She was afebrile. Chest: Clear. Her right groin site is intact. Cardiac: Normal. Extremities: No edema. Good distal pulses in the right posterior tibial. Impression: 1.Hypertension. 2.Dyslipidemia. 3.Coronary artery disease, status post right coronary artery angioplasty and stent on 05/21/2020. 4.History of peripheral artery disease, status post superficial femoral artery stent on the left gena e as well as left common iliac artery. Plan: The patient can go home today on her home medication including metoprolol, aspirin, Plavix. I will increase her Lipitor to 40 mg daily. She will see me in the office in 2 weeks. She can go [employer] to work in few days and I will see her in 2 weeks. What I think, she will need definitely a caroti d Doppler because of her vasculopathy. HOANG/MASON Voice ID: [id number] Report ID: [id number]
== END 2020-05-22 11:11 | disposition home or self-care (01) | DRG 247 ==
LOC: ER 20:38 → ERHOLD 23:44 → 2ND 05-19 00:04
PROVIDERS: ADMIT Internal Medicine; ATTEND Hospitalist
PROC: 027034Z Dilation of Coronary Artery, One Artery with Drug-eluting Intraluminal Device, Percutaneous Approach (ICD-10-PCS; principal; 2020-05-21)
PROC: 4A023N7 Measurement of Cardiac Sampling and Pressure, Left Heart, Percutaneous Approach (ICD-10-PCS; 2020-05-21)
PROC: B2111ZZ Fluoroscopy of Multiple Coronary Arteries using Low Osmolar Contrast (ICD-10-PCS; 2020-05-21)
DX: I21.4 Non-ST elevation (NSTEMI) myocardial infarction (principal); I10 Essential (primary) hypertension; E78.5 Hyperlipidemia, unspecified; F17.200 Nicotine dependence, unspecified, uncomplicated; I25.10 Atherosclerotic heart disease of native coronary artery without angina pectoris; R79.89 Other specified abnormal findings of blood chemistry; Z90.710 Acquired absence of both cervix and uterus; Z79.02 Long term (current) use of antithrombotics/antiplatelets; Z79.899 Other long term (current) drug therapy; Z20.828 Contact with and (suspected) exposure to other viral communicable diseases
CPT/HCPCS: 36415; 70450; 71045; 80048; 80061; 80076; 83735; 83880; 84439; 84443; 84484; 85025; 85347; 85610; 92928; 93005; 93454; 96372; 96374; 99285; C1725; C1760; C1893; J0583; J1644; J1650; J2250; J2270; J3010; J7030; J7040; U0002